=== PATIENT | female | born 1940 | race Caucasian/White ===

== ENCOUNTER 2024-02-11 09:52 | Outpatient (REF) | payer MEDICAID, SELFPAY ==
[2024-02-11 14:31] LABS: MANUAL DIFF FLAG NO
[2024-02-11 14:37] LABS: Eosinophils Absolute Auto 0.1 X10*3/uL (0.0-0.4); Eosinophils Percent Auto 2.4 % (0-4); Hemoglobin 12.2 g/dl (12.0-16.0); Imm Gran Abs Auto 0.01 X10*3/uL (0.00-0.03); Imm Gran Pct Auto 0.2 % (0.0-0.4); Lymphocytes Percent Auto 24.3 % (20-40); Mean Corpuscular HGB Conc 31.3 g/dl (31.0-35.0); Mean Corpuscular Volume 92.6 fL (80.0-98.0); Mean Platelet Volume 9.1 fL (9.4-12.3); Monocytes Absolute Auto 0.3 X10*3/uL (0.1-1.2); Monocytes Percent Auto 7.7 % (2-11); Neutrophils Absolute Auto 2.7 x10*3/uL (2.0-8.3); Neutrophils Percent Auto 64.4 % (45-73); Platelet Count 251 X10*3/uL (160-400); Red Blood Count 4.21 X10*6/uL (4.20-5.50); Red Cell Distribution Width 13.9 % (11.0-16.0); White Blood Count 4.2 X10*3/uL (4.8-10.8)
[2024-02-11 15:14] LABS: Alanine Aminotransferase 13 U/L (0-31); Albumin Level 4.2 g/dL (3.5-5.0); Alkaline Phosphatase 56 U/L (39-117); Anion Gap 12 (12-20); Aspartate Amino Transferase 18 U/L (5-31); Bilirubin Total 0.4 mg/dL (0.0-1.0); Blood Urea Nitrogen 13 mg/dL (9-16); Calcium 9.5 mg/dL (8.4-10.2); Carbon Dioxide 31 mmol/L (22-29); Chloride 105 mmol/L (96-108); Cholesterol 195 mg/dL (<200); Estimated Glomerular Filt Rate > 60; Glucose Random 71 mg/dL (60-115); HDL Cholesterol 75 mg/dL (>40); LDL Cholesterol Calculated 103 mg/dL (<100); Sodium 144 mmol/L (135-145); Total Protein 7.9 g/dL (6.5-8.0); Triglycerides 88 mg/dL (<150)
[2024-02-11 15:34] LABS: TSH reflex Free T4 1.74 uIU/mL (0.32-4.0)
[2024-02-11 15:35] LABS: Creatinine Urine 104.44 mg/dL
== END 2024-02-11 09:53 | disposition home or self-care (01) ==
LOC: HO.CHCLDS 09:52
PROVIDERS: Visit Provider Family Medicine
DX: Z13.30 Encounter for screening examination for mental health and behavioral disorders, unspecified (principal)
CPT/HCPCS: 36415; 80053; 80061; 82043; 82570; 84443; 85025

== ENCOUNTER 2024-07-13 13:55 | Outpatient (REF) | payer MEDICAID, SELFPAY ==
[2024-07-13 14:40] LABS: MANUAL DIFF FLAG NO
[2024-07-13 14:50] LABS: Basophils Percent Auto 0.7 % (0-2); Eosinophils Absolute Auto 0.1 X10*3/uL (0.0-0.4); Eosinophils Percent Auto 1.5 % (0-4); Hematocrit 38.2 % (37.0-47.0); Imm Gran Abs Auto 0.05 X10*3/uL (0.00-0.03); Imm Gran Pct Auto 1.1 % (0.0-0.4); Lymphocytes Absolute Auto 1.2 X10*3/uL (1.2-4.9); Lymphocytes Percent Auto 27.1 % (20-40); Mean Corpuscular HGB Conc 31.4 g/dl (31.0-35.0); Mean Corpuscular Hemoglobin 29.2 pg (27.0-33.0); Mean Corpuscular Volume 92.9 fL (80.0-98.0); Mean Platelet Volume 9.2 fL (9.4-12.3); Monocytes Absolute Auto 0.4 X10*3/uL (0.1-1.2); Monocytes Percent Auto 7.7 % (2-11); Neutrophils Absolute Auto 2.8 x10*3/uL (2.0-8.3); Neutrophils Percent Auto 61.9 % (45-73); Platelet Count 242 X10*3/uL (160-400); Red Blood Count 4.11 X10*6/uL (4.20-5.50); Red Cell Distribution Width 13.6 % (11.0-16.0); White Blood Count 4.6 X10*3/uL (4.8-10.8)
[2024-07-13 14:51] LABS: INTERNATIONAL NORM RATIO 0.9 (0.9-1.1); Prothrombin Time 11.4 SEC (11.1-13.3)
[2024-07-13 14:53] LABS: Partial Thromboplastin Time 30.6 SEC (26.0-36.8)
[2024-07-13 15:05] LABS: Anion Gap 10 (12-20); Blood Urea Nitrogen 19 mg/dL (9-16); Calcium 9.9 mg/dL (8.4-10.2); Carbon Dioxide 29 mmol/L (22-29); Chloride 105 mmol/L (96-108); Estimated Glomerular Filt Rate > 60; Glucose Random 99 mg/dL (60-115); Potassium 4.2 mmol/L (3.3-5.1); Sodium 140 mmol/L (135-145)
== END 2024-07-13 13:56 | disposition home or self-care (01) ==
LOC: HO.CHCLDS 13:55
PROVIDERS: Visit Provider Family Medicine
DX: Z01.818 Encounter for other preprocedural examination (principal)
CPT/HCPCS: 36415; 80048; 85025; 85610; 85730

== ENCOUNTER 2024-07-25 12:31 | Outpatient (REF) | payer MEDICAID, SELFPAY ==
--- NOTE | ~2024-07-25 | US_ITS ---
EXAMINATION: Noninvasive assessment of the bilateral lower extremities with ARTERIAL DUPLEX and ANKLE BRACHIAL INDICES (ABIs). CLINICAL INFORMATION: Peripheral vascular disease TECHNIQUE: Duplex Doppler techniques with waveform analysis and measurement of velocities in the bilateral common femoral, profunda femoris, superficial femoral, popliteal and tibial arteries were performed. Additionally, ankle pulse volume recordings, ankle pressure measurements and ankle brachial indices were obtained of the lower extremity arterial system bilaterally. The study was performed only at rest. COMPARISON: None FINDINGS: DIRECT DUPLEX DOPPLER FINDINGS: RIGHT LEG: Common femoral artery: 110 cm/s, phasicity: Triphasic. Mild calcified plaque Profunda femoris artery: 41.4 cm/s, phasicity: Biphasic Superficial femoral artery (proximal): 75.0 cm/s, phasicity: Biphasic Superficial femoral artery (mid): 78.7 cm/s, phasicity: Biphasic Superficial femoral artery (distal): 64.4 cm/s, phasicity: Biphasic Popliteal artery: 61.1 cm/s, phasicity: Biphasic Posterior tibial artery: 65.2 cm/s, phasicity: Biphasic Peroneal artery: 50.0 cm/s, phasicity: Biphasic Anterior tibial artery: 56.8 cm/s, phasicity: Biphasic Dorsalis pedis artery: 37.3 cm/s, phasicity:Biphasic LEFT LEG: Common femoral artery: 97.4 cm/s, phasicity: Triphasic. Minimal calcified plaque Profunda femoris artery: 46.1 cm/s, phasicity: Triphasic Superficial femoral artery (proximal): 63.3 cm/s, phasicity: Biphasic Superficial femoral artery (mid): 62.3 cm/s, phasicity: Biphasic Superficial femoral artery (distal): 52.6 cm/s, phasicity: Biphasic Popliteal artery: 61.3 cm/s, phasicity: Biphasic Posterior tibial artery: 74.9 cm/s, phasicity: Biphasic Peroneal artery: 55.8 cm/s, phasicity: Biphasic Anterior tibial artery: 60.2 cm/s, phasicity: Biphasic Dorsalis pedis artery: 42.8 cm/s, phasicity: Biphasic ANKLE-BRACHIAL INDEX: Right: 1.07 Left: 1.08 ANKLE PRESSURES: Right: PT 179, DP 171 Left: PT 170, DP 181 ANKLE PVR WAVEFORMS: Right: Normal Left: Normal US/US arterial duplex BI w/ BULL IMPRESSION: Right leg: Normal ankle brachial index and PVR waveform. Normal arterial waveforms on duplex Doppler without significant stenosis or occlusion. Left leg: Normal ankle brachial index and PVR waveform. Normal arterial waveforms on duplex Doppler without significant stenosis or occlusion. BULL Reference: - >1.4 = calcified vessels - 0.9 - 1.4 = normal - no significant arterial disease - 0.7 - 0.89 = mild peripheral arterial disease - 0.51 - 0.69 = moderate peripheral arterial disease - d 0.50 = severe peripheral arterial disease - < .30 = critical arterial disease Electronically signed by: Bello Hirsch MD 07/28/2024 01:55 PM EDT
== END 2024-07-25 12:32 | disposition home or self-care (01) ==
LOC: HO.US 12:31
PROVIDERS: PCP Family Medicine; Visit Provider Family Medicine
DX: I73.9 Peripheral vascular disease, unspecified (principal)
CPT/HCPCS: 93922; 93925

== ENCOUNTER 2025-09-20 15:13 | Outpatient (REF) | payer MEDICAID, SELFPAY ==
--- OUTSIDE RECORDS SUMMARY | 2025-09-20 14:00 | XMS_ITS | Encounter Summary ---
Author Organization [employer] Address [address] [facility] 7 [place] [address] Care Team Providers Care Chief Human Resources Officer Name Role Phone Ladi Murphy MD Primary Care Provider [phone] Reason for Referral * Consultation (Routine) - Pending Review Specialty Diagnoses / Procedures Referred By Sid t Referred To Contact Physical Therapy Diagnoses Chronic right shoulder pain Ladi Murphy MD [address] [place] [address] Phone: tel: fax: Referral ID Status Reason Start Date Expiration Date Visits Requested Visits Authorized [id number] Pending Review Specialty Services Required 5 09/20/2026 1 1 * Consultation (Routine) - Pending Review Specialty Diagnoses / Procedures Referred By Sid t Referred To Contact Rheumatology Diagnoses Chronic right shoulder pain Chronic midline low back pain without sciatica Polyarthralgia Ladi Murphy MD [address] [place] [address] Phone: tel: fax: Referral ID Status Reason Start Date Expiration Date Visits Requested Visits Authorized [id number] Pending Review Specialty Services Required 5 09/20/2026 1 1 Reason for Visit * Reason Comments Annual Exam PE Encounter Details Date Type Department Care Team ([facility] Contact Info) Description 09/20/2025 2:00 PM EST Office Visit [facility] [address] [place] [address] Ladi Murphy MD [address] [place] [address] Encounter for immunization (Primary Dx); Chronic right shoulder pain; Chronic midline low back pain without sciatica; Polyarthralgia; White coat syndrome with high blood pressure without hypertension Social History Tobacco Use Types Packs/Day Years Used Date Smoking Tobacco: Former Cigarettes 0.3 20 Passive Smoke Exposure: Past Smokeless Tobacco: Never Alcohol Use Standard Drinks/Week Comments Never 0 (1 standard drink = 0.6 oz pur e alcohol) Depression Answer Date Recorded Patient Health Questionnaire-9 Score 0 03/17/2024 Patient Health Questionnaire-9 Score 0 03/17/2024 Last PHQ-9: Questionnaire Data Not on file 0 03/17/2024 Housing Stability Answer Date Recorded What is your housing situation today? I have janae heath 02/02/[address] you li ve. Do you have problems with any of the following? None of the above 02/02/2024 Food Insecurity Answer Date Recorded Within the past 12 months, y ou worried that your food would run out before you got money to buy more: Never True 02/02/2024 Within the past 12 months,th e food you bought just didn't last and you didn't have enough money to get more: Never True Transportation Answer Date Recorded In the past 12 months, has l ack of transportation kept you from medical appts, meetings, work or from getting things needed for daily living? No 02/02/2024 Utilities Answer Date Recorded In the past 12 months, has t he [employer], gas, oil or water company threatened to shut off services in your home? No 02/02/2024 Depression Answer Date Recorded Patient Health Questionnaire-2 Score 0 03/17/2024 Comments Unknown Sex and Gender Information Value Date Recorded Sex Assigned at Female 12/20/2023 10:59 AM EST Legal Sex Female 10:58 AM EST Gender Identity Female 12/20/2023 10:59 AM EST Sexual Orientation Straight 12/20/2023 10 :59 AM EST documented as of this encounter Last Filed Vital Signs Vital Sign Reading Time Taken Comments Blood Pressure 182/86 09/20/2025 1:58 PM EST Pulse 88 09/20/2025 1:58 PM EST Temperature 36.7 C (98 F) 09/20/2025 1:58 PM EST Respiratory Rate 14 09/20/2025 1:58 PM EST Oxygen Saturation 98% 09/20/2025 1:58 PM EST Inhaled Oxygen Concentration - - Weight 56.2 kg (124 lb) 09/20/2025 1:58 PM EST Height 154.9 cm (5' 1 ) 09/20/2025 1:58 PM EST Body Mass Index 23.43 09/20/2025 1:58 PM EST documented in this encounter Plan of Treatment Pending Results Name Type Priority Associated Diagnoses Date /Time Urinalysis, Complete, with Reflex to Culture Lab Routine White coat syndrome with high blood pressure without hypertension 09/20/2025 3:07 PM EST Scheduled Orders Name Type Priority Associated Diagnoses Orde r Schedule XR Lumbar Spine 2-3 Views Imaging Routine Chronic midline low back pain without sciatica Expected: 09/20/2025, Expires: 09/20/2026 XR Thoracic Spine 3 Views Imaging Routine Chronic midline low back pain without sciatica Expected: 09/20/2025, Expires: 09/20/2026 Sed Rate by Modified [facility] Lab Routine Polyarthralgia Expected: 09/20/2025, Expires: 09/20/2026 Cyclic Citrullinated Peptide (CCP) Antibody (IgG) Lab Routine Polyarthralgia Expected: 09/20/2025 (Approximate), Expires: 09/20/2026 Scheduled Referrals Name Type Priority Associated Diagnoses Order Schedule Referral to Rheumatology Outpatient Referral Routine Chronic right shoulder pain Chronic midline low back pain without sciatica Polyarthralgia Expected: 09/20/2025 (Approximate), Expires: 09/20/2026 Referral to Physical Therapy Outpatient Referral Routine Chronic right shoulder pain Expected: 09/20/2025 (Approximate), Expires: 09/20/2026 documented as of this encounter Procedures Procedure Name Priority Date/Time Associated Diagnosis Comments CBC WITH AUTO DIFFERENTIAL Routine 09/20/2025 3:15 PM EST Polyarthralgia RHEUMATOID FACTOR Routine 09/20/2025 3:1 5 PM EST Polyarthralgia C-REACTIVE PROTEIN Routine 09/20/2025 3: 15 PM EST Polyarthralgia URINALYSIS, COMPLETE, WITH REFLEX TO CULTURE Routine 09/20/2025 3:07 PM EST White coat syndrome with high blood pressure without hypertension documented in this encounter Results * (ABNORMAL) Rheumatoid Factor (09/20/2025 3:15 PM EST) Pathologist [facility] Rheumatoid Factor 19.8(H) <15.0 IU/mL [facility] Blood Venous blood specimen / Unknown 09/20/2025 3:15 PM EST 09/20/2025 5:39 PM EST Ladi Murphy MD LAB BLOOD ORDERABLES Final Re sult Performing Organization Address [facility] Co de Phone Number [facility] [address] [place] [phone] * C-reactive Protein (09/20/2025 3:15 PM EST) Pathologist [facility] C Reactive Protein 0.18 < or = 0.50 mg/dL [facility] Blood Venous blood specimen / Unknown 09/20/2025 3:15 PM EST 09/20/2025 5:39 PM EST Ladi Murphy MD LAB BLOOD ORDERABLES Final Re sult Performing Organization Address [facility]/ZIP Co de Phone Number [facility] [address] [place] [address] [phone] * (ABNORMAL) CBC auto differential (09/20/2025 3:15 PM EST) Pathologist [facility] White Blood Count 6.9 4.8 - 10.8 X10*3/uL [facility] Red Blood Count 3.94(L) 4.20 - 5.50 X10*6/uL [facility] Hemoglobin 11.5(L) 12.0 - 16.0 g/dl [facility] Hematocrit 36.2(L) 37.0 - 47.0 % [facility] Mean Corpuscular Volume 91.9 80.0 - 98.0 fL [facility] Mean Corpuscular Hemoglobin 29.2 27.0 - 33.0 pg [facility] Mean Corpuscular HGB Conc 31.8 31.0 - 35.0 g/dl [facility] Red Cell Distribution Width 13.4 11.0 - 16.0 % [facility] Platelet Count 239 160 - 400 X10*3/uL [facility] Mean Platelet Volume 9.3(L) 9.4 - 12.3 fL [facility] Neutrophils Percent Auto 65.8 45 - 73 % [facility] Imm Gran Pct Auto 0.3 0.0 - 0.4 % [facility] Lymphocytes Percent Auto 24.4 20 - 40 % [facility] Monocytes Percent Auto 7.3 2 - 11 % [facility] Eosinophils Percent Auto 1.6 0 - 4 % [facility] Basophils Percent Auto 0.6 0 - 2 % [facility] NRBC Pct Auto 0.0 0.0 - 0.2 /100WBC [facility] Neutrophils Absolute Auto 4.5 2.0 - 8.3 x10*3/uL [facility] Imm Gran Abs Auto 0.02 0.00 - 0.03 X10*3/uL [facility] Lymphocytes Absolute Auto 1.7 1.2 - 4.9 X10*3/uL [facility] Monocytes Absolute Auto 0.5 0.1 - 1.2 X10*3/uL [facility] Eosinophils Absolute Auto 0.1 0.0 - 0.4 X10*3/uL [facility] Basophils Absolute Auto 0.0 0.0 - 0.2 X10*3/uL [facility] NRBC Abs Auto 0.000 0.0 - 0.012 X10*3/uL [facility] Blood Venous blood specimen / Unknown 09/20/2025 3:15 PM EST 09/20/2025 5:39 PM EST us Ladi Murphy MD LAB BLOOD ORDERABLES Final Re sult [facility] [address] [place] [phone] documented in this encounter Visit Diagnoses Diagnosis Encounter for immunization- Primary Chronic right shoulder pain Pain in joint, shoulder region Chronic midline low back pain without sciatica Polyarthralgia Pain in joint, multiple sites White coat syndrome with high blood pressure without hypertension documented in this encounter Additional Health Concerns Assessment Noted Time PHQ-9 Depression Total Score: 0 03/17/20 1:09 PM EDT documented as of this encounter Care Teams Chief Human Resources Officer Relationship Specialty Start Date End Date Ladi Murphy MD [address] [place] [phone] PCP - General Family Medicine 02/29/24 documented as of this encounter
[2025-09-20 17:45] LABS: MANUAL DIFF FLAG NO
[2025-09-20 17:57] LABS: Hematocrit 36.2 % (37.0-47.0); Hemoglobin 11.5 g/dl (12.0-16.0); Imm Gran Abs Auto 0.02 X10*3/uL (0.00-0.03); Imm Gran Pct Auto 0.3 % (0.0-0.4); Lymphocytes Absolute Auto 1.7 X10*3/uL (1.2-4.9); Mean Corpuscular HGB Conc 31.8 g/dl (31.0-35.0); Mean Corpuscular Hemoglobin 29.2 pg (27.0-33.0); Mean Corpuscular Volume 91.9 fL (80.0-98.0); NRBC Abs Auto 0.000 X10*3/uL (0.0-0.012); NRBC Pct Auto 0.0 /100WBC (0.0-0.2); Platelet Count 239 X10*3/uL (160-400); Red Blood Count 3.94 X10*6/uL (4.20-5.50); White Blood Count 6.9 X10*3/uL (4.8-10.8)
[2025-09-20 18:03] LABS: Appearance Urine Clear; Glucose Urine UA Negative (Negative); PH 5.5 (5.0-9.0); Specific Gravity - Urine 1.015 (1.005-1.025); UMIC TRIGGER UACC YES
--- OUTSIDE RECORDS SUMMARY | 2025-09-20 18:25 | XMS_ITS | Continuity of Care Document ---
Author Organization [place] - [facility], [facility] Address [address] [place] [address] Care Team Providers Care Receiving Room Clerk Name Role Phone AURELIO COMBS Primary Care Provider [phone] Assessment Encounter Date Assessment Date Assessment LastModified by Organization Details LastModified Time 08/30/2025 08/30/2025 85-year-old katherine goddard who wears amplification presents today for evaluation of her hearing. On examination both TMs are intact with well-aerated middle ear spaces. Audiometric testing today reveals mild sloping to severe SNHL in the left and severe-profound SNHL in the right ear. She has type A tympanometry bilaterally. There has been a decline in her right-sided hearing over the last year. Due to the asymmetric hearing loss and accelerated hearing loss in the right ear I offered to order a MRI brain with IAC protocol to evaluate for retrocochlear pathology. I discussed the pros and cons of obtaining brain imaging to evaluate the hearing nerve, and the family and patient opted to go through with the MRI. I reviewed the pathophysiology and nature of vestibular schwannomas and discussed the typical management options if one is present. We discussed options for correcting the hearing loss in her right ear, including a hearing aid and cochlear implantation. Both the patient and family agree that they would like to try a hearing aid in the right ear before consider a surgery. We will reconvene to discuss amplification after obtaining the MRI. [email or web address] Not available 08/30/2025 16:21:27 Plan of Treatment Reminders Order Date Submit Date Provider Last Modified By Organization Details Last Modified Time Details Appointments None recorded. Lab None recorded. Referral None recorded. Procedures None recorded. Surgeries None recorded. Imaging MRI, brain + internal auditory canal, w/wo contrast 2024 025 [email or web address] [facility] [address], [place], [address], 12:30:30 Medication Orders None recorded. Patient TargetsNo targets recorded. Patient InstructionsNo instructions recorded. Reason for Referral None Reported. Results Created Date Observation Date Name Description Value Unit Range Abnormal Flag Note LastModifiedBy Organization Detail LastModifiedTime 08/30/20 audio gram No observ ation record ed. BARCODE Not Available 2024 16:55:58 09/04/2009/08/2024 audio gram No observ ation record ed. Not Available 08/09 08:44:58 Result Notes None recorded. Problems Name Problem SNOMED Code Status Onset Date Resolution Date Notes Provider Name and Address Organization Details Recorded Time Sensorineural hearing loss of bilateral ears 514039425 Active 2023 ANKUR MIRANDA PA-C [address] [facility], [address] [facility], [place], [phone], [facility] - [facility] 4 14:41:10 Sensorineural hearing loss of bilateral ears 870640495 Active 2024 LYUDMILA LOPES [place], [facility] [address] [facility], [address] [facility], [place], [phone], [facility] - [facility] 5 15:40:59 Asymmetrical hearing loss 691886200 Active [address] [facility],[address] [facility], [place], [phone], [facility] - [facility] 5 16:16:17 Problem Notes None recorded. Procedures Surgical History Date Name Laterality Status Provider Name and Address Organization Details Recorded Time Air & Bone Audio - 37963 completed LYUDMILA LOPES [place], [facility]-A [address] [facility],[place] [address], [place], [phone], [place] - [facility] 08/30/2025 15:41:17 SRT & Tymps - 22555 & 03524 completed LYUDMILA LOPES [place], [facility] [address] [place] [address], [place], [phone], [facility] - [facility] 08/30/2025 15:41:24 Cataract Surgery completed Alma Rosa [place] - [facility] 08/30/2025 15:38:43 Imaging Results None recorded. Procedure Notes None recorded. Medical Equipment None Reported. Allergies No known drug allergies Medications Name Sig Start Date Stop Date Status Note LastModified by Organization Details LastModified Time ketorolac 0.5 % eye drops PUT 1 DROP INTO AFFECTED EYE 3 TIMES A DAY STARTING 2 DAYS PRIOR TO SURGERY. CONTINUE DIRECTED 08/30 completed Not Available Not Available Not Available benzonatate 100 mg capsule TAKE 1 CAPSULE (ORAL) 3 TIMES PER DAY (COUGH) FOR 10 DAYS 08/30 completed Not Available Not Available Not Available diclofenac potassium 50 mg tablet TAKE 1 TABLET BY MOUTH 3 TIMES DAILY active Not Available Not Available No t Available Pred Forte 1 % eye drops,suspe nsion INSTILL 1 DROP INTO LEFT EYE 4 TIMES A DAY 08/30 completed Not Available Not Available Not Available timolol maleate 0.5 % eye drops INSTILL 1 DROP INTO BOTH EYES TWICE A DAY active Not Available Not Available No t Available dorzolamide 2 % eye drops INSTILL 1 DROP INTO BOTH EYES TWICE A DAY active Not Available Not Available No t Available diclofenac 1 % topical gel APPLY 5 GRAMS TOPICALLY 4 TIMES DAILY active Not Available Not Available No t Available cholecalcif julee (vitamin D3) 50 mcg (2,000 unit) capsule TAKE 1 CAPSULE (50 MCG) BY MOUTH ONCE PER DAY. active Not Available Not Available No t Available Glucosamine -Chondroiti n DS 500 mg-400 mg capsule TAKE 1 CAPSULE BY MOUTH THREE TIMES A DAY 08/30 completed Not Available Not Available Not Available blood pressure test kit-large cuff Check blood pressure on arm as directed 08/30 completed Not Available Not Available Not Available Vitals None Recorded Social History None recorded. Functional Status None recorded. Mental Status None recorded. Family History Nothing Reported. Medical History Condition Response Arthritis Y Gynecological HistoryNo gynecological history recorded. Obstetrics History GPAL:G 0 P 0 0 0 0 Past Encounters Encounter ID Performer Location Encounter Start Date Encounter Closed Date Diagnosis/Indication Diagnosis SNOMED-CT Code Diagnosis ICD10 Code Diagnosis IMO Codes Diagnosis Note [id number] GIO CASTRO [facility] of [address] [phone] 08/30/2025 15:37:24 08/30/2025 15:56:23 Sensorineural hearing loss of bilateral ears [id number] H90.3 [id number] Audiologic al evaluation results: Right ear: Severe-pro found essiential ly SNHL; conductive overlay at 4000Hz Left ear: Mild sloping to severe SNHL. Tympanomet ry: Right Ear:Type A Left Ear:Type A Asymmetric al hearing loss [id number] H91.8X3 [id number] Health Concerns Section Related Observation LastModified by Organization Detai ls LastModified Time None Recorded Concern Status LastModified by Organization Details LastModified Time None Recorded Payers Encounter Date Sequence Insurance Name Policy Number Policy Cortez Covered Member ID Cortez Member ID Guarantor Name 08/30/2025 1 [place] [employer] Magdalena Wilson [id number] Magdalean aranda Notes Date Note Type Note Provider Name and Address Organization Details Recorded Time 08/30/2025 text/html ROS as noted in the HPI 85-year-old female who wears amplification presents today for evaluation of her hearing. On audiometric testing performed in 02/2024 there was asymmetry noted, worse in the right ear, and observation was elected over imaging to investigate retrocochlear pathology. Significant worsening hearing loss was noted in the right ear between 02/2024 and 09/2024 on audiometric testing at [facility], therefore she was referred back to us to investigate a cause for the hearing change. The patient does not wear amplification in the right ear because she is pending medical clearance for the asymmetry. Patient denies otalgia, otorrhea, tinnitus, and vertigo. The patient is interested in getting amplification for the right ear. DINESH LOPEZ MD [address] [place] [address], [phone], [facility] - [facility] 08/31/2025 08:19:34 OBGyn Episode No OBEpisode recorded.
--- OUTSIDE RECORDS SUMMARY | 2025-09-20 18:25 | XMS_ITS | Encounter Summary ---
Author Organization [employer] Address [address] [place] [address] Care Team Providers Care Food Broker Name Role Phone Ladi Murphy MD Primary Care Provider [phone] Reason for Visit * Reason Onset Date Comments Error 03/01/2024 Encounter Details Date Type Department Care Team ([facility] Contact Info) Description 03/01/2024 Telephone [facility] [address] [place] [address] Ladi Murphy MD [address] [place], [place] [phone] Error Social History Tobacco Use Types Packs/Day Years Used Date Smoking Tobacco: Former Cigarettes 0.3 20 Passive Smoke Exposure: Past Smokeless Tobacco: Never Alcohol Use Standard Drinks/Week Comments Never 0 (1 standard drink = 0.6 oz pur e alcohol) Housing Stability Answer Date Recorded What is [...] the past 12 months, has t he electric, gas, oil or water company threatened to shut off services in your home? No 02/02/2024 Comments Unknown Sex and Gender Information Value Date Recorded Sex Assigned at Female 12/20/2023 10:59 AM EST Legal Sex Female 10:58 AM EST Gender Identity Female 12/20/2023 10:59 AM EST Sexual Orientation Straight 12/20/2023 10 :59 AM EST documented as of this encounter Plan of Treatment Not on file documented as of this encounter Visit Diagnoses Not on filedocumented in this encounter Care Teams Food Broker Relationship Specialty Start Date End Date Ladi Murphy MD [address] [place] [phone] PCP - General Family Medicine 02/29/24 documented as of this encounter
--- OUTSIDE RECORDS SUMMARY | 2025-09-20 18:25 | XMS_ITS | Clinical Summary ---
Author Organization [employer] Address [address] [facility] [address] [place] [address] Care Team Providers Care Greens Tier Name Role Phone Ladi Murphy MD Primary Care Provider [phone] Allergies No known active allergies Medications benzonatate (Tessalon) 100 MG capsule TAKE 1 CAPSULE (ORAL) 3 TIMES PER DAY (COUGH) FOR 10 DAYS 3 Active Blood Pressure kitIndications: Elevated blood pressure reading 1 Units in the morning. 1 kit 4 Active timolol (Timoptic) 0.5 % ophthalmic solution INSTILL 1 DROP INTO LEFT EYE TWICE A DAY 4 Active ketorolac (Acular) 0.5 % ophthalmic solution PUT 1 DROP INTO AFFECTED EYE 3 TIMES A DAY STARTING 2 DAYS PRIOR TO SURGERY. CONTINUE DIRECTED 4 Active dorzolamide (Trusopt) 2 % ophthalmic solution INSTILL 1 DROP INTO LEFT EYE TWICE A DAY 4 Active cholecalciferol (Vitamin D-3) 50 MCG (1999) capsule Take 1 capsule (50 mcg) by mouth Once per day. 120 capsule 3 4 Active glucosamine-cho ndroitin 500-400 MG tablet Take 1 tablet by mouth 3 times daily. 90 tablet 3 4 Active Diclofenac Sodium 1 % gel APPLY 5 GRAMS TOPICALLY 4 TIMES DAILY 200 g 5 Active diclofenac (Cataflam) 50 MG tablet TAKE 1 TABLET BY MOUTH 3 TIMES DAILY 90 tablet 5 Active mirtazapine (Remeron) 7.5 MG tablet Take 1 tablet (7.5 mg) by mouth at bedtime. 90 tablet 1 5 Active tolterodine LA (Detrol LA) 4 MG 24 hr capsule Take 1 capsule (4 mg) by mouth Once per day. Do not crush, chew, or split. 90 capsule 1 5 Active Active Problems Problem Noted Date Diagnosed Date Chronic midline low back pain without sciatica 1 11/20/2024 Polyarthralgia 09/20/2025 Asymmetrical hearing loss 08/30/2025 Sensorineural hearing loss (SNHL) of both ears 1 Pre-op evaluation 07/13/2024 Assessment & Plan (07/13/2024 1:30 PM EDT): Preoperative testing not indicated in healthy patients < 50 years old undergoing low-risk elective surgery. Patient was seen for pre-operative evaluation. Patient reports no symptoms of CP at rest or with exertion, dyspnea at rest or with exertion, PND, LE edema, claudication, or palpitations. Patient has no hx of ischemic heart disease, CHF, CVD, diabetes, recent anticoagulant or antithrombotic use, person or family hx of coagulopathy. Patient reports no history of stress test, cardiac cath or coronary revascularization. Patients without any known cardiac risk factors (will undergo low risk surgery, no hx of ischemic heart disease, no h/o CVD, no h/o CHF, & no insulin dependent diabetes mellitus or known renal failure). According to the RCRI, this number of risk factors stratifies the patient to Class O, which carries a 0.4% risk of major CV complications. In this case, CV Risk is low for the intended procedure. Of note patient does have a hx of white coat hypertension, she monitors her Bps at home with target of < 140/90 mmHg, which is meets while not in health care facility. EKG with L axis deviation. Will send labs. PAD (peripheral artery disease) 07/13/2024 White coat syndrome with hig h blood pressure without hypertension 03/17/2024 Assessment & Plan (08/28/2024 4:46 PM EDT): BP is elevated. Pt declined influenza immunization today. Advised to have PCV-20 completed before trip to [place]. Assessment & Plan (04/14/2024 4:20 PM EDT): BP: 157/84 mmHg, at this moment patient reports her BP are well controlled at home Combined forms of age-related cataract of both e yes 03/17/2024 Other specified glaucoma 03/17/2024 Chronic right shoulder pain 02/10/2024 Assessment & Plan (08/28/2024 4:48 PM EDT): Discussed with Pt treatment options for pain. Continue to take Diclofenac for pain. Relevant Medications Diclofenac (Cataflam) 50 mg tablet Diclofenac Sodium 1% gel Glucosamine-Chondroitin 500-400 mg tablet Assessment & Plan (03/18/2024 3:36 AM EDT): Pt's Arthritis is causing her discomfort. Discussed medication she can take to relieve symptoms: -Naproxen 500mg only 2 times a day if in pain -Diclofenac Sodium 1 % gel -cholecalciferol (Vitamin D-3) 50 MCG (1999) capsule F/u in 6 months. Assessment & Plan (02/11/2024 2:21 AM EDT): Possible Arthritis in hands and shoulders. Discussed steroid injection for the shoulder pain but patient declined. - Ordered XR shoulder Hearing loss 02/10/2024 Assessment & Plan (02/11/2024 2:22 AM EDT): Hard of hearing for the past 6 years. - Referred to audiology at [facility] Encounters Date Type Department Care Team Description 09/20/2025 2:00 PM EST Office Visit [facility] [address] [place] [address] Ladi Murphy MD Encounter for immunization (Primary Dx); Chronic right shoulder pain; Chronic midline low back pain without sciatica; Polyarthralgia; White coat syndrome with high blood pressure without hypertension 09/20/2025 Telephone [facility] [address] [place] [address] Ladi Murphy MD Appointment 09/20/2025 Travel 09/20/2025 Telephone [facility] [address] [place] [address] Ladi Murphy MD chart prep 09/13/[address] [facility] [address] [place] [address] Ladi Murphy MD Pre-visit Planning (Pre visit planning LVM ) 06/26/[address] [facility] [address] [place], [place] [phone] Ladi Murphy MD from Last 3 Months Immunizations Immunization Administration Dates Next Due Influenza, High Dose Seasonal, Preservative Free 09/20/2025 Pneumococcal Conjugate PCV 20 09/13/2024 RSV Bivalent 02/10/2024 Tdap 03/17/2024 Zoster, Recombinant 08/25/2024,03/20/2024 Family History Medical History Relation Name Comments Heart attack Father renal disease Sister Relation Name Status Comments Father Sister Social History Tobacco Use Types Packs/Day Years [...] is your housing situation today? I have janaecolby heath 02/02/[address] you [...] Orientation Straight 12/20/2023 10 :59 AM EST Last Filed Vital Signs Vital Sign Reading [...] Mass Index 23.43 09/20/2025 1:58 PM EST Plan of Treatment Health Maintenance Due Date Last Done Comments Alcohol/Substance Use Screening 1952 Depression Screening 03/17/2025 03/17/2024, 03/17/2024 SDOH Screening 03/17/2025 03/17/2024 COVID-19 Vaccine ( - 2024-2 6 season) 2026 Postponed from 07/09 (Patient Refused) Tobacco Screening 09/20/2026 09/20/2025 Lipid Panel 02/10/2029 02/11/2024 DTaP/Tdap/Td Vaccines (2 - T d or Tdap) 03/17/2034 03/17/2024 RSV Patients and Patients Aged 60 years or older Completed 02/10/2024 Zoster Vaccines Completed 08/25/2024, 03/20/2024 Pneumococcal Vaccine: 50+ Years Completed 09/13/2024 Influenza Vaccine Completed 09/20/2025 HIB Vaccines Aged Out No longer eligi ble based on patient's age to complete this topic HPV Vaccines Aged Out No longer eligi ble based on patient's age to complete this topic Hepatitis A Vaccines Aged Out No long er eligible based on patient's age to complete this topic Hepatitis B Vaccines Aged Out No long er eligible based on patient's age to complete this topic IPV Vaccines Aged Out No longer eligi ble based on patient's age to complete this topic Meningococcal B Vaccine Aged Out No l onger eligible based on patient's age to complete this topic Meningococcal Vaccine Aged Out No lester ambar eligible based on patient's age to complete this topic RSV under 20 months Aged Out No longe r eligible based on patient's age to complete this topic Rotavirus Vaccines Aged Out No longer eligible based on patient's age to complete this topic Procedures Procedure Name Priority Date/Time Associated Diagnosis Comments RHEUMATOID FACTOR Routine 09/20/2025 3:1 5 PM EST Polyarthralgia C-REACTIVE PROTEIN Routine 09/20/2025 3: 15 PM EST Polyarthralgia CBC WITH AUTO DIFFERENTIAL Routine 09/20/2025 3:15 PM EST Polyarthralgia URINALYSIS, COMPLETE, WITH REFLEX TO CULTURE Routine 09/20/2025 3:07 PM EST White coat syndrome with high blood pressure without hypertension LIPID PANEL, STANDARD Routine 02/11/2024 10:01 AM EDT Encounter for behavioral health screening from Last 3 Months or Most Recently Relevant to Health Maintenance Results * (ABNORMAL) CBC auto differential (09/20/2025 3:15 PM EST) White Blood Count 6.9 4.8 - 10.8 X10*3/uL [facility] Red Blood Count 3.94(L) 4.20 - 5.50 X10*6/uL [facility] Hemoglobin 11.5(L) 12.0 - 16.0 g/dl [facility] Hematocrit 36.2(L) 37.0 - 47.0 % [facility] Mean Corpuscular Volume 91.9 80.0 - 98.0 fL [facility] Mean Corpuscular Hemoglobin 29.2 27.0 - 33.0 pg [facility] Mean Corpuscular HGB Conc 31.8 31.0 - 35.0 g/dl [facility] Red Cell Distribution Width 13.4 11.0 - 16.0 % [facility] Platelet Count 239 160 - 400 X10*3/uL [facility] Mean Platelet Volume 9.3(L) 9.4 - 12.3 fL [facility] Neutrophils Percent Auto 65.8 45 - 73 % [facility] Imm Gran Pct Auto 0.3 0.0 - 0.4 % [facility] Lymphocytes Percent Auto 24.4 20 - 40 % [facility] Monocytes Percent Auto 7.3 2 - 11 % [facility] Eosinophils Percent Auto 1.6 0 - 4 % [facility] Basophils Percent Auto 0.6 0 - 2 % [facility] NRBC Pct Auto 0.0 0.0 - 0.2 /100WBC [facility] Neutrophils Absolute Auto 4.5 2.0 - 8.3 x10*3/uL [facility] Imm Gran Abs Auto 0.02 0.00 - 0.03 X10*3/uL [facility] Lymphocytes Absolute Auto 1.7 1.2 - 4.9 X10*3/uL [facility] Monocytes Absolute Auto 0.5 0.1 - 1.2 X10*3/uL [facility] Eosinophils Absolute Auto 0.1 0.0 - 0.4 X10*3/uL [facility] Basophils Absolute Auto 0.0 0.0 - 0.2 X10*3/uL [facility] NRBC Abs Auto 0.000 0.0 - 0.012 X10*3/uL [facility] Blood Venous blood specimen / Unknown 09/20/2025 3:15 PM EST 09/20/2025 5:39 PM EST us Ladi Murphy MD LAB BLOOD ORDERABLES Final Re sult [facility] [address] [place] [phone] * (ABNORMAL) Rheumatoid Factor (09/20/2025 3:15 PM EST) Rheumatoid Factor 19.8(H) <15.0 IU/mL [facility] Blood Venous blood specimen / Unknown 09/20/2025 3:15 PM EST 09/20/2025 5:39 PM EST us Ladi Murphy MD LAB BLOOD ORDERABLES Final Re sult Performing Organization Address City/[facility]/ZIP Co de Phone Number [facility] [address] [place] [phone] * C-reactive Protein (09/20/2025 3:15 PM EST) C Reactive Protein 0.18 < or = 0.50 mg/dL [facility] Blood Venous blood specimen / Unknown 09/20/2025 3:15 PM EST 09/20/2025 5:39 PM EST us Ladi Murphy MD LAB BLOOD ORDERABLES Final Re sult Performing Organization Address City/[facility]/ZIP Co de Phone Number [facility] [address] [place] [phone] * (ABNORMAL) Lipid Panel, Standard (02/11/2024 10:01 AM EDT) Triglycerides 88 <150 mg/dL [facility] Comment:Desirable Triglyceri de: less than 150 mg/dLBorderline High Triglyceride 150-199 mg/dLHigh Triglyceride: 200-499 mg/dLVery High Triglyceride: greater than or equal to 5OO mg/dL Cholesterol 195 <200 mg/dL [facility] Comment:Desirable Cholestero l: less than 200 mg/dLBorderline High Cholesterol: 200-239 mg/dLHigh Cholesterol: greater than 239 mg/dL LDL Cholesterol Calculated 103(H) <100 mg/dL [facility] Comment:Desirable LDL: less than 100 mg/dLNear Optimal/Above Optimal LDL: 110- 129 mg/dLBorderline High LDL: 130-159 mg/dLHigh LDL: 160-189 mg/dLVery High LDL: greater than or equal to 190 mg/dL HDL Cholesterol 75 >40 mg/dL [facility] Comment:Desirable HDL: great er than 40 mg/dL Note: This HDL assay may give artificially low results in patients with liver disease. Blood Venous blood specimen / Unknown 02/11/2024 10:01 AM EDT 02/11/2024 2:24 PM EDT us Ladi Murphy MD LAB BLOOD ORDERABLES Final Re sult [facility] [address] [place] [phone] [phone] from Last 3 Months or Most Recently Relevant to Health Maintenance Insurance [facility] Care Teams Greens Tier Relationship Specialty Start Date End Date Ladi Murphy MD [address] [place] [address] PCP - General Family Medicine 02/29/24
--- OUTSIDE RECORDS SUMMARY | 2025-09-20 18:25 | XMS_ITS | Encounter Summary ---
Author Organization [employer] Address [address] [facility] [place] [address] Care Team Providers Care Supervisor Tan Room Name Role Phone Ladi Murphy MD Primary Care Provider [phone] Encounter Details Date Type Department Care Team (Latest Contact Info) Description 09/20/2025 Travel Social History Tobacco Use Types Packs/Day Years [...] t he electric, gas, oil or water [employer] threatened to shut off services in your [...] Diagnoses Not on filedocumented in this encounter Additional Health Concerns Assessment Noted Time PHQ-9 Depression Total Score: 0 03/17/20 24 1:09 PM EDT documented as of this encounter Care Teams Supervisor Tan Room Relationship Specialty Start Date End Date Ladi Murphy MD [address] [place] [address] PCP - General Family Medicine 02/29/24 documented as of this encounter
--- OUTSIDE RECORDS SUMMARY | 2025-09-20 18:25 | XMS_ITS | Data Portability ---
Author Organization [place] - [facility], [facility] Address [address] [address] Care Team Providers Care Timber Estimator Name Role Phone AURELIO COMBS Primary Care Provider [phone] Assessment Encounter Date Assessment Date Assessment LastModified by Organization Details LastModified Time 08/25/2024 08/25/2024 84-year-old katherine goddard presents for evaluation of hearing loss. On exam, bilateral tympanic membranes are intact with well aerated middle ear spaces. Audiometric testing performed at [facility] on 03/10/2024 demonstrated bilateral sensorineural hearing loss, worse on the right. We discussed observation versus MRI of the IACs to rule out retrocochlear pathology given asymmetric hearing loss. Given patient's age, we elected to proceed with observation. Medical clearance for amplification was provided today and she will follow-up with [facility] for hearing aid consultation. She will follow-up yearly for audiometric testing, or sooner with any worsening hearing loss, tinnitus, or vertigo. Patient and her family agree with the plan and all questions were answered. [email or web address] Not available 08/25/2024 14:44:38 08/30/2025 08/30/2025 85-year-old katherine goddard who wears [...] to discuss amplification after obtaining the MRI. [email or web address] Not available 08/30/2025 16:21:27 Plan of Treatment Reminders Order Date Submit Date Provider Last Modified By Organization Details Last Modified Time Details Appointments None recorded. Lab None recorded. Referral None recorded. Procedures None recorded. Surgeries None recorded. Imaging MRI, brain + internal auditory canal, w/wo contrast 2024 025 [email or web address] [facility] ([facility]), [address] [facility], [place], [address], 12:30:30 Medication Orders None recorded. Patient TargetsNo targets recorded. Patient InstructionsNo instructions recorded. Reason for Referral None Reported. Results Created Date Observation Date Name Description Value Unit Range Abnormal Flag Note LastModifiedBy Organization Detail LastModifiedTime 08/25/2003/10/2024 audio gram No observ ation record ed. [email or web address] Not Available 08/08 14:18:29 09/19/20 24 09/08/2024 audio gram No observ ation record ed. [email or web address] Not Available 09/08 09:47:01 09/26/20 24 09/15/2024 audio gram No observ ation record ed. [email or web address] Not Available 09/08 09:04:20 08/30/20 audio gram No observ ation record ed. BARCODE Not Available 2024 16:55:58 09/04/20 25 09/08/2024 audio gram No observ ation record ed. [email or web address] Not Available 08/09 08:44:58 Result Notes None recorded. Problems Name Problem SNOMED Code Status Onset Date Resolution Date Notes Provider Name and Address Organization Details Recorded Time Sensorineural hearing loss of bilateral ears 156366758 Active 2023 ANKUR MIRANDA PA-C [address] [facility] [address], [place], [address], [facility] 4 14:41:10 Sensorineural hearing loss of bilateral ears 601114570 Active 2024 LYUDMILA LOPES MA, CCC-A [address] [facility] [address], [place], [address], [facility] 5 15:40:59 Asymmetrical hearing loss 376249355 Active 2024 GIO CASTRO [address], [place], [address], [facility] 5 16:16:17 Problem Notes None recorded. Procedures Surgical History Date Name Laterality Status Provider Name and Address Organization Details Recorded Time 5 Air & Bone Audio - 98484 completed LYUDMILA LOPES MA, [facility] [address] [facility],[place] [address], [place], [address], [facility] 08/30/2025 15:41:17 5 SRT & Tymps - 05740 & 54990 completed LYUDMILA LOPES MA, [facility] [address] [place] [address],[place] [address], [place], [address], [facility] 08/30/2025 15:41:24 Cataract Surgery completed Alma Rosa Ware [facility] 08/30/2025 15:38:43 Imaging Results None recorded. [...] Not Available Not Available Not Available Vitals Date Recorded Body height Body mass index (BMI) Body weight Provider Name and Address Organization Details Last Updated DateTime 08/25/2024 157.48 cm 29.3 kg/m2 57579.78 g Bobbi Valverde [place] - [facility] 08/25/2024 13:31:51 Social History None recorded. Functional Status None recorded. Mental Status None recorded. Family History Nothing Reported. Medical History Condition Response Arthritis Y Gynecological HistoryNo gynecological history recorded. Obstetrics History GPAL:G 0 P 0 0 0 0 Past Encounters Encounter ID Performer Location Encounter Start Date Encounter Closed Date Diagnosis/Indication Diagnosis SNOMED-CT Code Diagnosis ICD10 Code Diagnosis IMO Codes Diagnosis Note [id number] ANKUR MIRANDA PA-C [facility] [address] [address] 08/25/2024 12:55:29 08/25/2024 14:05:29 Sensorineural hearing loss of bilateral ears 889148834 H90.3 [id number] GIO CASTRO [facility] [address] [place] [address] 08/30/2025 15:37:24 08/30/2025 15:56:23 Sensorineural hearing loss of bilateral ears 195375490 H90.3 [id number] Audiologic al evaluation results: Right ear: Severe-pro found essiential ly SNHL; conductive overlay at 4000Hz Left ear: Mild sloping to severe SNHL. Tympanomet ry: Right Ear:Type A Left Ear:Type A Asymmetric al hearing loss 869103038 H91.8X3 [id number] Health Concerns Section Related Observation LastModified by Organization Detai ls LastModified Time None Recorded Concern Status LastModified by Organization Details LastModified Time None Recorded Advance Directives Directive None Recorded Payers Insurance Date Sequence Insurance Name Policy Number Policy Cortez Covered Member ID Cortez Member ID Guarantor Name 08/30/2025 1 [place] [facility] Magdalena Wilson [id number] Magdalena aranda 08/30/2025 1 [place] [facility] Magdalena Wilson [id number] Magdalena aranda Notes Date Note Type Note Provider Name and Address Organization Details Recorded Time 08/25/2024 text/html ROS as noted in the [facility] 84-year-old female presents for evaluation of hearing loss. She was seen by [facility] back in March and had a hearing test which showed sensorineural hearing loss bilaterally, worse on the right. She was referred to our office for medical clearance. She is accompanied by her daughter and son-in-law who translated in Albanian. She denies otalgia, otorrhea, tinnitus, and vertigo. Denies prior otologic history. ANKUR MIRANDA PA-C [address] [facility],[address], [address], [facility] - [facility] 08/25/2024 14:44:49 08/30/2025 text/html ROS as noted in the [facility] 85-year-old female who wears amplification presents today for evaluation of her hearing. On audiometric testing performed in 02/2024 there was asymmetry noted, worse in the right ear, and observation was elected over imaging to investigate retrocochlear pathology. Significant worsening hearing loss was noted in the right ear between 02/2024 and 09/2024 on audiometric testing at [facility], therefore she was referred back to us to investigate a cause for the hearing change. The patient does not wear amplification in the right ear because she is pending medical clearance for the asymmetry. Patient denies otalgia, otorrhea, tinnitus, and vertigo. The patient is interested in getting amplification for the right ear. DINESH LOPEZ MD [address] [place] [address], [place], [address], [facility] - [facility] 08/31/2025 08:19:34 OBGyn Episode No OBEpisode recorded.
--- OUTSIDE RECORDS SUMMARY | 2025-09-20 18:25 | XMS_ITS | Encounter Summary ---
Author Organization [employer] Address [address] [facility] [address] [place] [address] Care Team Providers Care Preparing Box Tender Name Role Phone Laid Murphy MD Primary Care Provider [phone] Reason for Visit * Reason Comments Med Refill Encounter Details Date Type Department Care Team ([facility] Contact Info) Description 09/16/2024 Refill [facility] [address] [place], [place] [phone] Ladi Murphy MD [address] [place] [address] Social History Tobacco Use Types Packs/Day Years [...] documented as of this encounter Care Teams Preparing Box Tender Relationship Specialty Start Date End Date Ladi Murphy MD [address] [place] [address] PCP - General Family Medicine 02/29/24 documented as of this encounter
--- OUTSIDE RECORDS SUMMARY | 2025-09-20 18:25 | XMS_ITS | Encounter Summary ---
Author Organization [employer] Address [address] [facility] [address] [place] [address] Care Team Providers Care Relay Tester Helper Name Role Phone Ladi Murphy MD Primary Care Provider [phone] Reason for Visit * Reason Onset Date Comments Appointment 09/20/2025 Encounter Details Date Type Department Care Team ([facility] Contact Info) Description 09/20/2025 Telephone [facility] [address] [place] [address] Ladi Murphy MD [address] [place] [address] Appointment Social History Tobacco Use Types Packs/Day Years [...] your housing situation today? I have janae ivana 02/02/[address] you li [...] AM EST documented as of this encounter Miscellaneous Notes * Telephone Encounter - Uziel Marrero - 09/20/2025 4:32 PM EST Outgoing call com writer attempted to george active request. Follow up in about 2 months (around 11/20/2025) for Urge incontinence/white coat HTN/shoulder pain/appetite.If pt calls back please george on next avai. documented in this encounter Plan of Treatment Not on file documented as of this encounter Visit Diagnoses Not on filedocumented in this encounter Additional Health Concerns Assessment Noted Time PHQ-9 Depression Total Score: 0 03/17/20 24 1:09 PM EDT documented as of this encounter Care Teams Relay Tester Helper Relationship Specialty Start Date End Date Ladi Murphy MD [address] [place] [address] PCP - General Family Medicine 02/29/24 documented as of this encounter
--- OUTSIDE RECORDS SUMMARY | 2025-09-20 18:25 | XMS_ITS | Encounter Summary ---
Author Organization [employer] Address [address] [place] [address] Care Team Providers Care Balance Wheel Hand Filer Name Role Phone Ladi Murphy MD Primary Care Provider [phone] Reason for Visit * Reason Onset Date Comments chart prep 09/20/2025 Encounter Details Date Type Department Care Team ([facility] Contact Info) Description 09/20/2025 Telephone [facility] [address] [place] [address] Ladi Murphy MD [address] [place] [address] chart prep Social History Tobacco Use Types Packs/Day Years [...] encounter Miscellaneous Notes * Telephone Encounter - Bri Figueredo [place] - 09/20/2025 9:32 AM EST Chart Prep Labs: not applicable Images: not applicable Referrals: not applicable Vaccines due: Covid and Flu Screenings: not applicable Overdue care gaps: SBIRT, SDOH, PHQ-9, JOANNE-7, and Tobacco documented in this encounter Plan of Treatment Not on file documented as of this encounter Visit Diagnoses Not on filedocumented in this encounter Additional Health Concerns Assessment Noted Time PHQ-9 Depression Total Score: 0 03/17/20 24 1:09 PM EDT documented as of this encounter Care Teams Balance Wheel Hand Filer Relationship Specialty Start Date End Date Ladi Murphy MD [address] [place] [address] PCP - General Family Medicine 02/29/24 documented as of this encounter
[2025-09-20 19:06] LABS: UACC Culture Trigger YES
== END 2025-09-20 15:14 | disposition home or self-care (01) ==
LOC: HO.CHCLDS 15:13
PROVIDERS: Visit Provider Family Medicine
DX: R03.0 Elevated blood-pressure reading, without diagnosis of hypertension (principal); M25.50 Pain in unspecified joint
CPT/HCPCS: 36415; 81001; 85025; 85652; 86140; 86200; 86431; 87086